=== PATIENT | female | born 1990 | race Caucasian/White ===

== ENCOUNTER → 2020-11-10 | Outpatient (CLI) | payer BC ==
[~2020-11-10] MED LIST: CEPH-507 PO; CLON1TAB PO; EFFEXOR PO; MONT10TA21 PO; OLAN5TAB3 PO
--- NOTE | 2020-11-10 14:28 | Diagnostic Imaging Report ---
PROCEDURE: US Renal Bilateral. TECHNIQUE: Multiple real-time grayscale images were obtained over the kidneys in various projections bilaterally. INDICATION: Recurrent UTI. FINDINGS: Right kidney measures 10.2 x 4.8 x 4.9 cm. Left kidney measures 12 x 4.6 x 4.6 cm. There is no hydronephrosis. No calculi or masses. Good preservation of renal cortex. Bladder shows prevoid volume of 230 mL. Bladder wall is smooth. Bilateral ureteral jets were demonstrated. Postvoid volume is 10 mL. IMPRESSION: 1. No evidence of obstructive uropathy. Kidneys appear normal. Dictated by: Dictated on workstation # [id number]
== END ==
LOC: RAD 12:00
PROVIDERS: ATTEND Nurse Practitioner Family
DX: N23 Unspecified renal colic (principal); R30.0 Dysuria
CPT/HCPCS: 76770